=== PATIENT | female | born 1975 | race Native Hawaiian/Other Pacific Islander ===

== ENCOUNTER 2017-03-07 13:31 | Emergency (ER) | payer OTHER ==
[~2017-03-07] VITALS: Ht 162.6 cm; Wt 79.4 kg
[~2017-03-07 13:31] MED LIST: BUSPIRONE10 MG PO; CHERATUSSIN PO; CLON1TAB18 PO; FLUT0.05 NAS; GABA400C2 PO; LYRICA75 MG PO; MILLIPRED DP5 MG PO; PAXIL30 MG PO; PHENOBARB32.4 MG PO; PROMETHAZINE25 M1 PO; PROVENTIL IN; REQUIP1 MG OR; SEROQUEL300 MG PO; TENCON 50-325 M1 TAB PO; TIZA4TAB5 PO; ZANTAC300 MG PO
[2017-03-07 14:11] VITALS: BP 135/84; TEMP 98.2
== END 2017-03-07 14:13 | disposition home or self-care (01) ==
LOC: ED 13:31
DX: S20.211A Contusion of right front wall of thorax, initial encounter (principal); W01.190A Fall on same level from slipping, tripping and stumbling with subsequent striking against furniture, initial encounter; Y93.89 Activity, other specified; Y92.098 Other place in other non-institutional residence as the place of occurrence of the external cause
CPT/HCPCS: 99283

== ENCOUNTER 2018-09-07 09:56 | Outpatient (CLI) | payer OTHER | END 2018-09-07 22:15 | disposition home or self-care (01) | LOC: RAD 09:56 | DX: M25.519 Pain in unspecified shoulder (principal); M79.672 Pain in left foot ==